=== PATIENT | female | born 2000 | race Caucasian/White ===

== ENCOUNTER 2022-05-21 16:37 | Emergency (ER) | payer SELFPAY ==
[2022-05-21 17:13] VITALS: TEMP 99.2; BMI 27.9
[2022-05-21] MEDS ORDERED: ONDANSETRON 4 MG/2 ML VIAL IVPUSH ONE (17:33)
[2022-05-21] MEDS ORDERED: SODIUM CHLORIDE 0.9% 500 ML INFUS.BAG IV ONE (17:33)
[2022-05-21] MEDS ORDERED: ALPRAZolam 1 MG TABLET PO PRN ×2 (17:34→17:39)
[2022-05-21] MEDS ORDERED: ONDANSETRON 4 MG/2 ML VIAL ONE (17:38)
[2022-05-21 18:33] LABS: BASO % 0.2 % (0-2.0); HEMATOCRIT 40.6 % (32.4-45.2); HEMOGLOBIN 13.4 GM/dL (10.7-15.3); LYMPH % 7.4 % (8-40); MCH 27.7 pg (25.7-33.7); MEAN PLT VOLUME 9.7 fl (7.5-11.1); MONO % 3.1 % (3.8-10.2); NEUT % 89.3 % (42.8-82.8); PLATELET COUNT 287 10^3/uL (134-434); RBC 4.84 M/mm3 (3.60-5.2); RDW 14.5 % (11.6-15.6); WHITE BLOOD COUNT 16.1 K/mm3 (4.0-10.0)
[2022-05-21 18:42] LABS: ALBUMIN 4.2 g/dl (3.4-5.0); BLOOD UREA NITROGEN 12.5 mg/dL (7-18); MAGNESIUM 1.1 mg/dL (1.8-2.4)
[2022-05-21 18:44] LABS: CREATININE 0.8 mg/dL (0.55-1.3)
[2022-05-21 18:46] LABS: BILIRUBIN,TOTAL 1.4 mg/dL (0.2-1); TOT PROT 8.2 g/dl (6.4-8.2)
[2022-05-21] MEDS ORDERED: MAGNESIUM SULF 50% (8.12 MEQ/2 ML-1 GM VIAL) IVPB ONE (18:49)
[2022-05-21] MEDS ORDERED: MAGNESIUM SULFATE IN WATER 2 GM/50 ML IVPB IVPB ONE (19:57)
[2022-05-21 20:05] LABS: VENOUS BASE EXCESS -2.3 mmol/L (-2-2); VENOUS O2 SATURATION 42.2 % (70-80); VENOUS PCO2 42.3 mmHg (38-52); VENOUS PH 7.356 (7.310-7.410)
[2022-05-21] MEDS ORDERED: MAG HYDROX/AL HYDROX/SIMETH -MYLANTA- ORAL SUSPENSION PO ONE (20:16)
[2022-05-21] MEDS ORDERED: FAMOTIDINE 20 MG TABLET PO ONE (20:16)
[2022-05-21] MEDS ORDERED: MAG HYDROX/AL HYDROX/SIMETH 30 ML UNIT-DOSE CUP ONE (21:21)
[2022-05-21] MEDS ORDERED: FAMOTIDINE 20 MG TABLET ONE (21:21)
[2022-05-21 21:32] VITALS: BP 117/78; PULSE 78; RESP 16
== END 2022-05-21 21:33 ==
LOC: JER 16:37
PROC: 3E033GC Introduction of Other Therapeutic Substance into Peripheral Vein, Percutaneous Approach (ICD-10-PCS; principal; 2022-05-21)
PROC: 3E033GC Introduction of Other Therapeutic Substance into Peripheral Vein, Percutaneous Approach (ICD-10-PCS; 2022-05-21)
DX: R11.0 Nausea (principal)
CPT/HCPCS: 36415; 76705-TC; 80053; 82803; 83690; 83735; 84703; 85025; 99284-25; C9803-CS; U0003; U0005